=== PATIENT | female | born 1985 | race Caucasian/White ===

== ENCOUNTER → 2017-06-17 | Outpatient (CLI) | payer BC ==
[~2017-06-17] MED LIST: BACTRIM DS 8001 TA1 PO; BIRTH CONTROL1 EAC1 PO
[2017-06-17 10:23] LABS: BASO # 0.1 10*3/uL (0.0-0.1); BASO % 0.9 % (0.0-1.0); EOS # 0.2 10*3/uL (0.0-0.4); EOS % 3.3 % (1.0-4.0); HEMATOCRIT 38.1 % (37.0-47.0); HEMOGLOBIN 12.4 g/dl (12.0-16.0); LYMPH # 1.6 10*3/uL (1.3-4.4); LYMPH % 27.6 % (27.0-41.0); MEAN CELL VOLUME 88.4 fl (81.0-99.0); MEAN CORPUSCULAR HGB 28.8 pg (27.0-31.0); MEAN CORPUSCULAR HGB CONC 32.5 g/dl (33.0-37.0); MEAN PLATELET VOLUME 9.8 fl (9.6-12.3); MONO # 0.5 10*3/uL (0.1-1.0); MONO % 8.9 % (3.0-9.0); NEUT # 3.4 10*3/uL (2.3-7.9); PLATELET COUNT AUTOMATED 270 10*3/uL (130-400); RED BLOOD COUNT 4.31 10*6/uL (4.10-5.10); RED CELL DISTRI WIDTH 12.5 % (0-14.5); WHITE BLOOD COUNT 5.7 10*3/uL (4.8-10.8)
[2017-06-17 10:46] LABS: ALBUMIN 3.5 gm/dl (3.1-4.5); BUN 14 mg/dl (7-24); CHLORIDE 105 mmol/L (98-107); CHOLESTEROL 158 mg/dL (<200); CREATININE 0.95 mg/dL (0.55-1.02); POTASSIUM 4.2 mmol/L (3.5-5.1); SGOT/AST 23 IU/L (3-35); SGPT/ALT 30 U/L (12-78); SODIUM 138 mmol/L (136-145); TOTAL PROTEIN 7.3 gm/dL (6.4-8.2); TRIGLYCERIDES 81 mg/dl (<150); VLDL CHOLESTEROL 16 mg/dL (6-40)
[2017-06-17 10:55] LABS: ALKALINE PHOSPHATASE 107 U/L (45-117); HDL CHOLESTEROL 55 mg/dl (40-60); LDL CHOLESTEROL 87 mg/dL (9-159)
[2017-06-18 07:06] LABS: FOLLICLE STIMULATING HORMONE 1.1 mIU/mL (.); LUTEINIZING HORMONE 004283 0.5 mIU/mL (.)
== END | disposition home or self-care (01) ==
LOC: LAB 09:22 → US 09:30
PROVIDERS: Internal Medicine
DX: E28.2 Polycystic ovarian syndrome (principal); R10.11 Right upper quadrant pain; E66.09 Other obesity due to excess calories; K76.0 Fatty (change of) liver, not elsewhere classified

== ENCOUNTER → 2017-08-08 | Outpatient (CLI) | payer BC ==
[2017-08-10 16:05] LABS: FATS, NEUTRAL Normal (.); FATS, TOTAL Normal (.)
== END | disposition home or self-care (01) ==
LOC: LAB 09:43
PROVIDERS: Nurse Practitioner Family
DX: R19.7 Diarrhea, unspecified (principal)

== ENCOUNTER → 2017-09-12 | Day surgery (SDC) | payer BC ==
[2017-09-09 09:47] LABS: BILIRUBIN NEGATIVE (NEGATIVE); BLOOD NEGATIVE (NEGATIVE); CLARITY SL CLOUDY (CLEAR); COLOR YELLOW (YELLOW); GLUCOSE NEGATIVE (NEGATIVE); KETONE NEGATIVE (NEGATIVE); LEUKO ESTERASE NEGATIVE (NEGATIVE); NITRITE NEGATIVE (NEGATIVE); PH 6.5 (5.0-9.0); SPECIFIC GRAVITY 1.015 (1.005-1.030); UROBILINOGEN 0.2 E.U./dl (0.2-1.0)
[2017-09-09 10:05] LABS: BASO # 0.1 10*3/uL (0.0-0.1); BASO % 0.8 % (0.0-1.0); EOS # 0.2 10*3/uL (0.0-0.4); EOS % 3.1 % (1.0-4.0); HEMATOCRIT 38.8 % (37.0-47.0); HEMOGLOBIN 12.6 g/dl (12.0-16.0); LYMPH # 1.8 10*3/uL (1.3-4.4); LYMPH % 25.4 % (27.0-41.0); MEAN CELL VOLUME 88.2 fl (81.0-99.0); MEAN CORPUSCULAR HGB 28.6 pg (27.0-31.0); MEAN CORPUSCULAR HGB CONC 32.5 g/dl (33.0-37.0); MEAN PLATELET VOLUME 9.6 fl (9.6-12.3); MONO # 0.6 10*3/uL (0.1-1.0); MONO % 8.8 % (3.0-9.0); NEUT # 4.4 10*3/uL (2.3-7.9); NEUT % 61.5 % (47.0-73.0); PLATELET COUNT AUTOMATED 317 10*3/uL (130-400); RED CELL DISTRI WIDTH 12.8 % (0-14.5); WHITE BLOOD COUNT 7.1 10*3/uL (4.8-10.8)
[2017-09-09 10:15] LABS: BUN 11 mg/dl (7-24); CHLORIDE 104 mmol/L (98-107); CREATININE 0.93 mg/dL (0.55-1.02); POTASSIUM 4.1 mmol/L (3.5-5.1); SODIUM 138 mmol/L (136-145)
[2017-09-09 10:25] LABS: BACTERIA TRACE
[2017-09-09 10:48] LABS: INTERNATIONAL NORM RATIO 0.9 (2.0-3.5)
[~2017-09-12] VITALS: Ht 175.2 cm; Wt 127.0 kg
[2017-09-12] VITALS (8 sets, daily range): BP systolic 108–128; BP diastolic 44–90
[~2017-09-12] MED LIST changes: +NORCO 5-325 TA1 EACH PO; +VITAMIN B 12 IJ
--- NOTE | ~2017-09-12 | O ---
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 POSTOPERATIVE DIAGNOSIS: Perianal sinus. PROCEDURE: Excision of perianal sinus. SURGEON: Taran Yu MD DIRECTOR CORPORATE COMPLIANCE: YECENIA. ANESTHESIA: General with endotracheal intubation. 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 The procedure and its complications were explained to the patient in detail. Complications that were discussed included but were not limited to bleeding, infection, recurrence, prolonged postoperative pain, damage to underlying vital structures and recurrence. She agreed to proceed. DESCRIPTION OF PROCEDURE: After identifying the patient, the patient was brought to the operating suite and laid in the supine position. After induction of general anesthesia, she was placed in a lithotomy position and the parts were then painted and draped in the usual sterile fashion. A time-out procedure was called. A digital rectal exam was performed, which was within normal limits. Metallic probe was introduced through the external opening of the suspected fistula and was gently probed. Its direction was towards the labia, but the distance was approximately 1 inch away from the external opening where it would not proceed any further from that point. There was no internal opening identified to the perianal region. At this point, an incision was made over the probe and it was deepened in layers with the help of electrocautery. Dissection was performed on either side of the probe till the entire sinus tract was laid away from the surrounding structures and excised in its entirety. It was sent for histopathological diagnosis. Hemostasis was achieved with the help of electrocautery. Thereafter, the subcutaneous tissue was irrigated and approximated with the help of 3-0 Vicryl and the skin edges were loosely approximated with the help of 3-0 silk in an interrupted fashion. A dressing was placed. The patient was placed back in the supine position and extubated uneventfully and brought back to the recovery room in stable fashion. Blood loss was minimal. Dr. Taran Yu, the attending surgeon, was present throughout the operating case. There were no complications. [place], [place] OPERATIVE NOTE [facility] [id number] UNIT #: [id number] ROOM: DOCTOR: TARAN YU MD BIRTHDATE: [birth year] Taran Yu MD CM:OPRECORD:OPERATIVE NOTE 5 7 TARAN YU MD 09/12/17947 interface
--- NOTE | 2017-09-12 08:00 | NUR ---
MEDICATED WITH A SECOND DOSE OF VERSED TO HELP HER RELAX
== END ==
LOC: SDC 09-08 10:15 → LAB 00:47 → SDC 07:30 → LAB 08:00 → EDSTATUS 08:00 → SDC 08:00 → LAB 11:00 → SDC 11:00
PROVIDERS: Surgery
DX: K60.3 Anal fistula (principal); K21.9 Gastro-esophageal reflux disease without esophagitis; Z88.8 Allergy status to other drugs, medicaments and biological substances; E66.01 Morbid (severe) obesity due to excess calories; Z68.41 Body mass index [BMI] 40.0-44.9, adult

== ENCOUNTER → 2017-11-14 | Outpatient (CLI) | payer BC | END | disposition home or self-care (01) | LOC: LAB 09:55 | DX: D68.9 Coagulation defect, unspecified (principal) ==

== ENCOUNTER 2017-12-14 15:44 | Emergency (ER) | payer BC ==
[~2017-12-14] VITALS: Ht 177.8 cm; Wt 131.5 kg
[2017-12-14 16:49] LABS: BASO # 0.1 10*3/uL (0.0-0.1); BASO % 0.7 % (0.0-1.0); EOS # 0.1 10*3/uL (0.0-0.4); EOS % 1.2 % (1.0-4.0); HEMATOCRIT 35.8 % (37.0-47.0); HEMOGLOBIN 11.9 g/dl (12.0-16.0); LYMPH # 1.9 10*3/uL (1.3-4.4); LYMPH % 23.7 % (27.0-41.0); MEAN CELL VOLUME 89.3 fl (81.0-99.0); MEAN CORPUSCULAR HGB 29.7 pg (27.0-31.0); MEAN CORPUSCULAR HGB CONC 33.2 g/dl (33.0-37.0); MEAN PLATELET VOLUME 9.6 fl (9.6-12.3); MONO # 0.7 10*3/uL (0.1-1.0); MONO % 8.1 % (3.0-9.0); NEUT # 5.3 10*3/uL (2.3-7.9); NEUT % 65.9 % (47.0-73.0); PLATELET COUNT AUTOMATED 283 10*3/uL (130-400); RED BLOOD COUNT 4.01 10*6/uL (4.10-5.10); RED CELL DISTRI WIDTH 12.9 % (0-14.5); WHITE BLOOD COUNT 8.1 10*3/uL (4.8-10.8)
[2017-12-14 17:00] LABS: ACT PARTIAL THROMBO TIME 22.9 SECONDS (20.8-31.5); INTERNATIONAL NORM RATIO 0.9 (2.0-3.5)
[2017-12-14 17:07] LABS: ALBUMIN 3.7 gm/dl (3.1-4.5); ALKALINE PHOSPHATASE 115 U/L (45-117); BUN 12 mg/dl (7-24); CHLORIDE 104 mmol/L (98-107); CREATININE 0.99 mg/dL (0.55-1.02); POTASSIUM 3.6 mmol/L (3.5-5.1); SGOT/AST 29 IU/L (3-35); SGPT/ALT 42 U/L (12-78); SODIUM 139 mmol/L (136-145); TOTAL PROTEIN 7.4 gm/dL (6.4-8.2)
[2017-12-14 17:34] LABS: BILIRUBIN NEGATIVE (NEGATIVE); BLOOD NEGATIVE (NEGATIVE); CLARITY CLEAR (CLEAR); COLOR YELLOW (YELLOW); GLUCOSE NEGATIVE (NEGATIVE); KETONE NEGATIVE (NEGATIVE); LEUKO ESTERASE NEGATIVE (NEGATIVE); NITRITE NEGATIVE (NEGATIVE); PH 6.5 (5.0-9.0); SPECIFIC GRAVITY 1.015 (1.005-1.030); UROBILINOGEN 0.2 E.U./dl (0.2-1.0)
[2017-12-14 17:41] LABS: BACTERIA TRACE
[2017-12-14] MEDS ORDERED: PREDNISONE10 MG PO (17:56)
[2017-12-14] MEDS ORDERED: CYCLOBENZAPRINE5 M3 PO (17:56)
[2017-12-14] MEDS ORDERED: Motrin,Rufen800 MG PO (17:56)
== END 2017-12-14 19:51 | disposition home or self-care (01) ==
LOC: ED 15:44
PROVIDERS: Nurse Practitioner
DX: M62.838 Other muscle spasm (principal); F10.10 Alcohol abuse, uncomplicated; Z91.040 Latex allergy status; Z79.899 Other long term (current) drug therapy

== ENCOUNTER → 2018-01-14 | Outpatient (CLI) | payer BC ==
[~2018-01-14] MED LIST changes: +CYCLOBENZAPRINE5 M3 PO; +Motrin,Rufen800 MG PO; +PREDNISONE10 MG PO
[2018-01-15 13:08] LABS: ANTICARDIOLIPIN AB, IGG, QN <9 GPL U/mL (0-14); ANTICARDIOLIPIN AB, IGM, QN 11 MPL U/mL (0-12); SJOGREN ANTI-SS-A <0.2 AI (0.0-0.9); SJOREN AB, ANTI-SS-B <0.2 AI (0.0-0.9)
[2018-01-15 22:06] LABS: PTT-LA 31.6 sec (0.0-51.9)
[2018-01-16 07:06] LABS: BETA-2 GLYCOPROTEIN I AB,IGA <9 (0-25); BETA-2 GLYCOPROTEIN I AB,IGG <9 (0-20); BETA-2 GLYCOPROTEIN I AB,IGM <9 (0-32); LUPUS DRVVT 48.8 sec (0.0-47.0)
[2018-01-16 08:10] LABS: LUPUS REFLEX INTERPRETATION Comment: (.)
[2018-01-17 14:06] LABS: METHYLMALONIC ACID 706961 110 nmol/L (0-378)
== END | disposition home or self-care (01) ==
LOC: LAB 15:08
PROVIDERS: Psychiatry & Neurology Neurology
DX: R93.0 Abnormal findings on diagnostic imaging of skull and head, not elsewhere classified (principal)

== ENCOUNTER → 2018-02-16 | Outpatient (CLI) | payer BC ==
[2018-02-16 11:49] LABS: CHOLESTEROL 161 mg/dL (<200); HDL CHOLESTEROL 50 mg/dl (40-60); LDL CHOLESTEROL 96 mg/dL (9-159); TRIGLYCERIDES 77 mg/dl (<150); VLDL CHOLESTEROL 15 mg/dL (6-40)
[2018-02-20 00:07] LABS: PROTEIN C, ACTIVITY 120 % (.); PROTEIN S ACTIVITY 92 % (.)
== END | disposition home or self-care (01) ==
LOC: LAB 10:25
PROVIDERS: Psychiatry & Neurology Neurology
DX: I63.9 Cerebral infarction, unspecified (principal); R79.89 Other specified abnormal findings of blood chemistry

== ENCOUNTER → 2018-05-08 | Day surgery (SDC) | payer BC ==
[~2018-05-08] VITALS: Ht 177.8 cm; Wt 86.2 kg
[~2018-05-08] MED LIST changes: +ASPIRIN81 M1 PO; +MERIBIN5 MG PO; +OMEPRAZOLE20 M2 PO; +PROBIOTIC1 EAC1 PO
--- NOTE | ~2018-05-08 | O ---
[place], [place] OPERATIVE NOTE NAME: JARRETT REMY [facility] #: [id number] UNIT #: [id number] ROOM: DOCTOR: FRANC ERVIN MD BIRTHDATE: [birth year] DOS: 05/08/2018 PROCEDURE: Transesophageal echocardiogram. INDICATIONS: Stroke in a young adult. DESCRIPTION OF PROCEDURE: Informed written consent was obtained from the patient and she was brought to the operating suite in a postabsorptive state. Continuous oximetry and electrocardiographic monitoring along with intermittent blood pressure monitoring were initiated. She was anesthetized by anesthesia staff. Once a satisfactory degree of anesthesia was obtained, the transesophageal transducer was introduced through her mouth to the level of her stomach without difficulty. Imaging was obtained in the standard fashion. Echocardiographic contrast was obtained by 10 mL bolus injections of agitated saline through a peripheral IV. When all imaging was completed, the transducer was removed. The patient had stable vital signs during the examination and had no immediately noted complications. She was awake at the completion of the procedure. FINDINGS: The aortic root visualized transverse aorta and descending thoracic aorta to the level of the diaphragm showed normal anatomy. The aortic valve had 3 leaflets with normal excursion. The left atrium was normal in size. The left atrial appendage was well visualized and showed no evidence for clotting. The pulmonary veins were all noted to enter the left atrium appropriately and pulmonary venous flow pattern was normal. The interatrial septum showed a fairly large fossa ovalis with increased mobility of the membrane. Doppler interrogation of the fossa ovalis did show trivial [id number] shunting. The right atrium was normal in size and structurally normal. No thrombus was seen in either left or right atrium. Saline contrast was administered and a few contrast targets did pass from the right atrium to the left atrium through the patent foramen ovale. The tricuspid valve was structurally normal. The mitral valve was structurally normal. Physiologic mitral and tricuspid insufficiencies were present. The aortic valve was structurally normal without stenosis or insufficiency. The pulmonic valve was structurally normal. The right ventricle and left ventricle both appeared normal in size with normal left ventricular wall motion and systolic function. IMPRESSION: 1. Pinhole-sized patent foramen ovale with bidirectional shunting noted and documented by color Doppler interrogation and saline contrast injection. 2. No other potential cardiac source for embolism seen. PLAN: The patient and her were informed of the diagnosis. 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 The patient is known to have a factor V Leiden mutation and anticoagulation will be determined by her tool grinding machine operator. On the other hand, it seems very unlikely that her patent foramen ovale has anything to do with her neurologic event since it is very small and a neurologic event would presuppose that she has a deep venous thrombosis, which has not yet been documented. [place], [place] OPERATIVE NOTE NAME: JARRETT REMY [facility] UNIT #: [id number] ROOM: DOCTOR: FRANC ERVIN MD BIRTHDATE: [birth year] FRANC ERVIN MD CM:OPRECORD:OPERATIVE NOTE [id number] FRANC ERVIN MD 05/12/18 0705 interface
[2018-05-08 10:50] VITALS: BP 119/77
[2018-05-08 12:24] VITALS: BP 107/55
[2018-05-08 12:39] VITALS: BP 110/58
[2018-05-08 12:54] VITALS: BP 106/55
== END | disposition home or self-care (01) ==
LOC: SDC 05-05 08:00
DX: I08.1 Rheumatic disorders of both mitral and tricuspid valves (principal); K21.9 Gastro-esophageal reflux disease without esophagitis; E66.01 Morbid (severe) obesity due to excess calories; Z86.73 Personal history of transient ischemic attack (TIA), and cerebral infarction without residual deficits; Z98.890 Other specified postprocedural states; Z91.040 Latex allergy status; Z79.899 Other long term (current) drug therapy; Z82.49 Family history of ischemic heart disease and other diseases of the circulatory system; Z83.3 Family history of diabetes mellitus; Z83.49 Family history of other endocrine, nutritional and metabolic diseases; Z68.27 Body mass index [BMI] 27.0-27.9, adult

== ENCOUNTER 2019-12-13 15:14 | Emergency (ER) | payer BC ==
[~2019-12-13] VITALS: Ht 175.2 cm; Wt 122.5 kg
[2019-12-13 16:12] LABS: BASO # 0.1 10*3/uL (0.0-0.1); BASO % 0.7 % (0.0-1.0); EOS # 0.1 10*3/uL (0.0-0.4); EOS % 0.7 % (1.0-4.0); HEMATOCRIT 38.9 % (37.0-47.0); HEMOGLOBIN 12.1 g/dl (12.0-16.0); LYMPH # 1.9 10*3/uL (1.3-4.4); LYMPH % 23.4 % (27.0-41.0); MEAN CELL VOLUME 88.8 fl (81.0-99.0); MEAN CORPUSCULAR HGB 27.6 pg (27.0-31.0); MEAN CORPUSCULAR HGB CONC 31.1 g/dl (33.0-37.0); MEAN PLATELET VOLUME 9.4 fl (9.6-12.3); MONO # 0.7 10*3/uL (0.1-1.0); MONO % 8.3 % (3.0-9.0); NEUT # 5.3 10*3/uL (2.3-7.9); NEUT % 66.7 % (47.0-73.0); PLATELET COUNT AUTOMATED 323 10*3/uL (130-400); RED BLOOD COUNT 4.38 10*6/uL (4.10-5.10); RED CELL DISTRI WIDTH 13.4 % (0-14.5)
[2019-12-13 16:14] LABS: BILIRUBIN NEGATIVE (NEGATIVE); BLOOD TRACE-INTACT (NEGATIVE); CLARITY CLEAR (CLEAR); COLOR YELLOW (YELLOW); GLUCOSE NEGATIVE (NEGATIVE); KETONE NEGATIVE (NEGATIVE); LEUKO ESTERASE NEGATIVE (NEGATIVE); NITRITE NEGATIVE (NEGATIVE); UROBILINOGEN 0.2 E.U./dl (0.2-1.0)
[2019-12-13 16:18] LABS: BACTERIA 1+; MUCOUS 1+
[2019-12-13 16:31] LABS: ALBUMIN 3.7 gm/dl (3.1-4.5); ALKALINE PHOSPHATASE 130 U/L (45-117); BUN 12 mg/dl (7-24); CHLORIDE 104 mmol/L (98-107); CREATININE 1.08 mg/dL (0.55-1.02); LIPASE 121 U/L (73-393); POTASSIUM 3.9 mmol/L (3.5-5.1); SGOT/AST 25 IU/L (3-35); SGPT/ALT 38 U/L (12-78); SODIUM 139 mmol/L (136-145); TOTAL PROTEIN 7.6 gm/dL (6.4-8.2)
[2019-12-13] MEDS ORDERED: ANAPROX DS550 MG PO (17:00)
[2019-12-13] MEDS ORDERED: ZOFRAN4 MG PO (17:01)
[2019-12-13] MEDS ORDERED: METHOCARBAMOL500 M1 PO (17:02)
== END 2019-12-13 17:09 | disposition home or self-care (01) ==
LOC: ED 15:14
PROVIDERS: Physician Assistant
DX: K57.32 Diverticulitis of large intestine without perforation or abscess without bleeding (principal); Z91.040 Latex allergy status; Z79.899 Other long term (current) drug therapy; Z79.82 Long term (current) use of aspirin; Z87.442 Personal history of urinary calculi

== ENCOUNTER → 2023-02-03 | Outpatient (CLI) | payer BC ==
[~2023-02-03] MED LIST changes: +ANAPROX DS550 MG PO; +METHOCARBAMOL500 M1 PO; +ZOFRAN4 MG PO
== END | disposition home or self-care (01) ==
LOC: US 13:00
PROVIDERS: ATTEND Internal Medicine
DX: D68.9 Coagulation defect, unspecified (principal)